=== PATIENT | male | born 1975 | race Caucasian/White ===

== ENCOUNTER 2018-10-31 21:45 | Emergency (ER) | payer OTHER ==
[2018-10-31 22:10] LABS: WHITE BLOOD COUNT 10.7 10^3/ul (4.8-10.8)
[2018-10-31 22:10] LABS: ADD MAN DIFF? NO; BASOPHILS % 0.4 % (0.0-2.0); EOSINOPHILS # 0.1 10^3/ul (0.0-0.5); EOSINOPHILS % 0.9 % (0.0-7.0); HEMOGLOBIN 14.1 g/dl (14.0-18.0); LYMPHOCYTES # 3.3 10^3/ul (0.8-2.9); LYMPHOCYTES % 30.7 % (15.0-51.0); MEAN CORPUSCULAR HEMOGLOBIN 28.4 pg (29.0-33.0); MEAN CORPUSCULAR HGB CONC 32.8 g/dl (32.0-37.0); MEAN CORPUSCULAR VOLUME 86.5 fl (82.0-101.0); MEAN PLATELET VOLUME 11.3 fl (7.4-10.4); MONOCYTE # 1.3 10^3/ul (0.3-0.9); MONOCYTES % 11.8 % (0.0-11.0); NEUTROPHIL # 5.9 10^3/ul (1.6-7.5); NEUTROPHILS % 55.4 % (39.0-77.0); PLATELET COUNT 270 10^3/UL (140-415); RED BLOOD COUNT 4.97 10^6/ul (4.70-6.10); RED CELL DISTRIBUTION WIDTH 12.5 % (11.5-14.5)
[2018-10-31] MEDS: SOD CHLORIDE 0.9% 1,000 ML IV ×2 (22:32→23:40)
[2018-10-31 22:35] LABS: ANION GAP 19 (5-13); BLOOD UREA NITROGEN 14 mg/dl (7-20); CARBON DIOXIDE 20 mmol/L (21-31); CHLORIDE 101 mmol/L (97-110); CREATININE 1.21 mg/dl (0.61-1.24); Estimated GFR > 60 mL/min (>60); GLUCOSE 102 mg/dl (70-220); POTASSIUM 4.1 mmol/L (3.5-5.1); SODIUM 140 mmol/L (135-144)
[2018-10-31 22:48] LABS: TROPONIN-I < 0.012 ng/ml (0.000-0.120)
[2018-10-31 23:22] LABS: ETHANOL < 10.0 mg/dl (0-0)
[2018-10-31] MEDS: SILVER SULFADIAZINE 1% 25 GM CR TOP (23:44)
[2018-10-31 23:57] LABS: AMPHETAMINE/METHAMPHETAMINE NEGATIVE (NEGATIVE); BARBITURATES NEGATIVE (NEGATIVE); BENZODIAZEPINES NEGATIVE (NEGATIVE); CANNABINOIDS NEGATIVE (NEGATIVE); COCAINE NEGATIVE (NEGATIVE); OPIATES NEGATIVE (NEGATIVE)
== END 2018-11-01 01:22 | disposition home or self-care (01) ==
LOC: E/R 11-01 01:22
DX: G40.909 Epilepsy, unspecified, not intractable, without status epilepticus (principal); S01.21XA Laceration without foreign body of nose, initial encounter; T22.112A Burn of first degree of left forearm, initial encounter; R40.2142 Coma scale, eyes open, spontaneous, at arrival to emergency department; R40.2362 Coma scale, best motor response, obeys commands, at arrival to emergency department; R40.2252 Coma scale, best verbal response, oriented, at arrival to emergency department; X58.XXXA Exposure to other specified factors, initial encounter; Y92.9 Unspecified place or not applicable
CPT/HCPCS: 12011; 36415; 70450; 80048; 80307; 82962; 84484; 85025; 93005; 99285-25